=== PATIENT | male | born 1935 | race Caucasian/White ===

== ENCOUNTER → 2017-02-01 | Outpatient (CLI) | payer MEDICARE | END | disposition home or self-care (01) | LOC: PCVCCLINIC 10:56 | PROVIDERS: ATTEND Internal Medicine Cardiovascular Disease | DX: I49.5 Sick sinus syndrome (principal); I95.1 Orthostatic hypotension; R60.9 Edema, unspecified; K21.9 Gastro-esophageal reflux disease without esophagitis; Z95.0 Presence of cardiac pacemaker; Z79.82 Long term (current) use of aspirin; Z79.899 Other long term (current) drug therapy | CPT/HCPCS: 93005; G0463 ==

== ENCOUNTER → 2017-08-02 | Outpatient (CLI) | payer MEDICARE | END | disposition home or self-care (01) | LOC: PCVCCLINIC 10:31 | PROVIDERS: ATTEND Internal Medicine Cardiovascular Disease | DX: I95.1 Orthostatic hypotension (principal); I49.5 Sick sinus syndrome; R60.9 Edema, unspecified; Z79.82 Long term (current) use of aspirin; Z79.899 Other long term (current) drug therapy | CPT/HCPCS: 93005; G0463 ==

== ENCOUNTER → 2018-01-24 | Outpatient (CLI) | payer MEDICARE ==
[~2018-01-24] MED LIST: REGADENOSON 0.4 MG/5 ML DISP.SYRIN. IV
== END | disposition home or self-care (01) ==
LOC: PCVCIMAG 07:44
DX: I49.5 Sick sinus syndrome (principal); R55 Syncope and collapse
CPT/HCPCS: 78452; 93017; A9500; J2785

== ENCOUNTER → 2018-07-27 | Outpatient (CLI) | payer MEDICARE | END | disposition home or self-care (01) | LOC: PCVCCLINIC 12:47 | PROVIDERS: ATTEND Internal Medicine Cardiovascular Disease | DX: I49.5 Sick sinus syndrome (principal); I95.1 Orthostatic hypotension; R60.9 Edema, unspecified; E78.00 Pure hypercholesterolemia, unspecified; K21.9 Gastro-esophageal reflux disease without esophagitis; Z79.82 Long term (current) use of aspirin | CPT/HCPCS: 93005; 93280; G0463 ==

== ENCOUNTER → 2019-01-18 | Outpatient (CLI) | payer MEDICARE ==
--- NOTE | 2019-01-18 09:37 | PCVCIMAG ---
APPROVED REPORT Study performed: 01/18/2019 08:15:32 EXAM: Comprehensive 2D, Doppler, and color-flow Echocardiogram Patient Location: Echo lab Status: routine BSA: 2.44 HR: 60 bpmBP: 126/80 mmHg Rhythm: Pacemaker Other Information Study Quality: Adequate Indications Pacemaker edema, hx sick sinus syndrome 2D Dimensions IVSd: 12.72 (7-11mm) LVDd: 50.85 mm PWd: 12.30 (7-11mm)Ascending Ao: 41.00 (22-36mm) LVDs: 39.10 (25-40mm) Left Atrium: 43.59 (27-40mm) Aortic Root: 37.08 mm LV Single Plane 4CH: 52.76 % LV Single Plane 2CH: 53.01 % Biplane EF: 53.0 % Volumes Left Atrial Volume (Systole) Single Plane 4CH: 92.29 mLSingle Plane 2CH: 105.68 mL LA ESV Index: 42.00 mL/m2 Aortic Valve AoV Peak Luis.: 1.39 m/s AO Peak Gr.: 7.72 mmHgLVOT Max P.11 mmHg LVOT Max V: 0.88 m/s Mitral Valve E/A Ratio: 0.5 MV Decel. Time: 371.78 ms MV E Max Luis.: 0.47 m/s MV A Luis.: 0.98 m/s IVRT: 134.95 ms Pulmonary Valve PV Peak Luis.: 0.91 m/sPV Peak Gr.: 3.29 mmHg Pulmonary Vein P Vein S: 0.30 m/sP Vein A: 0.49 m/s P Vein D: 0.41 m/sP Vein A Dur.: 169.6 msec P Vein S/D Ratio: 0.73 Tricuspid Valve TR Peak Luis.: 2.66 m/s TR Peak Gr.: 28.38 mmHg TV Vmax: 0.44 m/s Left Ventricle The left ventricle is normal size. There is normal LV segmental wall motion. Mild concentric left ventricular hypertrophy. Left ventricular systolic function is normal. The left ventricular ejection fraction is within the normal range. LVEF is 55%. Grade I - abnormal relaxation pattern. Right Ventricle The right ventricle is normal size. The right ventricular systolic function is normal. Pacemaker lead is present in the right ventricle. Atria Left atrium is moderately dilated. Right atrium is moderately dilated. Pacemaker lead is present in the right atrium. Aortic Valve Mild aortic valve sclerosis. No aortic regurgitation is present. There is no aortic valvular stenosis. Mitral Valve The mitral valve is normal in structure. Mild mitral regurgitation. No evidence of mitral valve stenosis. Tricuspid Valve The tricuspid valve is normal in structure. Mild tricuspid regurgitation with PAP of 35 mmHg. Pulmonic Valve The pulmonary valve is normal in structure. There is trace pulmonic valvular regurgitation. Great Vessels The aortic root is normal in size. IVC is normal in size and collapses >50% with inspiration. Pericardium There is no pericardial effusion. There is no pleural effusion. <Conclusion> The left ventricle is normal size. Mild concentric left ventricular hypertrophy. Left ventricular systolic function is normal. Grade I - abnormal relaxation pattern. The right ventricle is normal size. Pacemaker lead is present in the right ventricle. Left atrium is moderately dilated. Right atrium is moderately dilated. Pacemaker lead is present in the right atrium. Mild aortic valve sclerosis. Mild mitral regurgitation. Mild tricuspid regurgitation with PAP of 35 mmHg.
== END | disposition home or self-care (01) ==
LOC: PCVCIMAG 08:19
PROVIDERS: ATTEND Internal Medicine Cardiovascular Disease
DX: I08.3 Combined rheumatic disorders of mitral, aortic and tricuspid valves (principal); Z95.0 Presence of cardiac pacemaker
CPT/HCPCS: 93005; 93306; G0463

== ENCOUNTER → 2019-07-12 | Outpatient (CLI) | payer MEDICARE | END | disposition home or self-care (01) | LOC: PCVCCLINIC 15:49 | PROVIDERS: ATTEND Internal Medicine Cardiovascular Disease | DX: I49.5 Sick sinus syndrome (principal); I95.1 Orthostatic hypotension; R60.9 Edema, unspecified; K21.9 Gastro-esophageal reflux disease without esophagitis; E78.00 Pure hypercholesterolemia, unspecified; Z79.899 Other long term (current) drug therapy; Z90.49 Acquired absence of other specified parts of digestive tract; Z95.0 Presence of cardiac pacemaker | CPT/HCPCS: 93005; G0463 ==